=== PATIENT | male | born 1990 ===

== ENCOUNTER 2021-04-09 18:02 | Emergency (ER) | payer SELFPAY ==
[~2021-04-09] VITALS: Ht 167 cm; Wt 100.0 kg
[2021-04-09 18:33] LABS: BILIRUBIN,URINE NEGATIVE (NEGATIVE); CLARITY,URINE CLEAR; COLOR,URINE YELLOW; GLUCOSE, URINE (UA) NEGATIVE (NEGATIVE); KETONES,URINE NEGATIVE (NEGATIVE); LEUKOCYTE ESTERASE ,URINE NEGATIVE (NEGATIVE); NITRITE,URINE NEGATIVE (NEGATIVE); PROTEIN,URINE NEGATIVE (NEGATIVE)
[2021-04-09] MEDS ORDERED: FAMOTIDINE 20 MG (PEPCID) TABLET PO STA (18:43)
[2021-04-09] MEDS ORDERED: LIDOCAINE 2% VISCOUS 15 ML UDC PO ONE (18:45)
[2021-04-09] MEDS ORDERED: LACTATED RINGERS 1,000 ML IV ONE (18:45)
[2021-04-09] MEDS ORDERED: ANTACID SUSP 30 ML UDC (MYLANTA) PO ONE (18:45)
[2021-04-09 18:47] LABS: AMORPHOUS SEDIMENT,UR RARE AMOR URATES /LPF; BACTERIA,URINE TRACE /HPF
--- NOTE | 2021-04-09 18:48 | ED Abdominal Pain ---
General Chief Complaint: Abdominal/GI Problems Stated Complaint: R SIDE ABD PAIN Source of Information: Patient Exam Limitations: No Limitations History of Present Illness Date Seen by Provider: Apr 09, 2021 Time Seen by Provider: 18:35 Initial Comments Patient to ER by private conveyance with his significant other and chief complaint that he started experiencing some abdominal pain this evening about 30 minutes after he ate in his left upper quadrant abdomen. He had a hard bowel movement a couple hours ago and noticed a little red blood around it. He is never had this before. No history of diverticulitis or abdominal surgeries. No colonoscopy or EGD. No nausea vomiting fevers chills. The pain has all but gone away at this time. No history of GERD or pancreatitis. He does not drink. No sore throat or trauma. He describes the pain as feeling like a gas bubble. Allergies and Home Medications Allergies Coded Allergies: No Known Drug Allergies (Unverified , 04/09/21) Patient Home Medication List Home Medication List Reviewed: Yes Review of Systems Review of Systems Constitutional: No chills, No diaphoresis EENTM: No Blurred Vision, No Double Vision Respiratory: Denies Cough, Denies Shortness of Air Cardiovascular: Denies Chest Pain, Denies Lightheadedness Gastrointestinal: See HPI, Abdominal Pain; Denies Diarrhea, Denies Nausea; Rectal Bleeding; Denies Vomiting Genitourinary: Denies Burning, Denies Discharge Musculoskeletal: No back pain, No joint pain All Other Systems Reviewed Negative Unless Noted: Yes Past Mynmamb-Vnjkfk-Jpkedp Hx Patient Social History Tobacco Use?: No Substance use?: No Alcohol Use?: No Pt feels they are or have been: No Immunizations Up To Date Influenza Vaccine Up-to-Date: No; Not Current Physical Exam Vital Signs Vital Signs - First Documented 04/09/21 18:20 Temp 36.8 Pulse 80 Resp 20 B/P (MAP) 150/90 (110) Pulse Ox 95 O2 Delivery Room Air Capillary Refill : Height/Weight/BMI Height: '" Weight: lbs. oz. kg; BMI Method: General Appearance: WD/WN, no apparent distress HEENT: PERRL/EOMI; No pharynx normal (Dry oral mucosa) Neck: full range of motion, normal inspection Respiratory: no respiratory distress, no accessory muscle use Cardiovascular: normal peripheral pulses, regular rate, rhythm Gastrointestinal: normal bowel sounds, soft, no organomegaly, tenderness (Mild left upper quadrant abdominal tenderness without splenomegaly. No guarding, no Rovsing, mesenteric, McBurney's point, rebound tenderness. Negative for Baltazar sign) Extremities: non-tender, normal inspection, normal capillary refill Neurologic/Psychiatric: alert, oriented x 3, other (Anxious affect) Progress/Results/Core Measures Results/Orders Lab Results Laboratory Tests Test 04/09/21 18:27 04/09/21 18:30 Range/Units Urine Color YELLOW Urine Clarity CLEAR Urine pH 6.0 5-9 Urine Specific [place] >=1.030 1.016-1.022 Urine Protein NEGATIVE NEGATIVE Urine Glucose (UA) NEGATIVE NEGATIVE Urine Ketones NEGATIVE NEGATIVE Urine Nitrite NEGATIVE NEGATIVE Urine Bilirubin NEGATIVE NEGATIVE Urine Urobilinogen 0.2 < = 1.0 MG/DL Urine Leukocyte Esterase NEGATIVE NEGATIVE Urine RBC (Auto) NEGATIVE NEGATIVE Urine RBC NONE /HPF Urine WBC NONE /HPF Urine Crystals PRESENT H /LPF Urine Amorphous Sediment RARE TREVOR URATES H /LPF Urine Bacteria TRACE /HPF Urine Casts NONE /LPF Urine Mucus NEGATIVE /LPF Urine Culture Indicated NO White Blood Count 8.7 4.3-11.0 10^3/uL Red Blood Count 5.19 4.30-5.52 10^6/uL Hemoglobin 14.8 13.3-17.7 g/dL Hematocrit 46 40-54 % Mean Corpuscular Volume 88 80-99 fL Mean Corpuscular Hemoglobin 29 25-34 pg Mean Corpuscular Hemoglobin Concent 33 32-36 g/dL Red Cell Distribution Width 13.1 10.0-14.5 % Platelet Count 305 130-400 10^3/uL Mean Platelet Volume 9.2 9.0-12.2 fL Immature Granulocyte % (Auto) 0 % Neutrophils (%) (Auto) 48 42-75 % Lymphocytes (%) (Auto) 41 12-44 % Monocytes (%) (Auto) 10 0-12 % Eosinophils (%) (Auto) 1 0-10 % Basophils (%) (Auto) 1 0-10 % Neutrophils # (Auto) 4.1 1.8-7.8 10^3/uL Lymphocytes # (Auto) 3.5 1.0-4.0 10^3/uL Monocytes # (Auto) 0.8 0.0-1.0 10^3/uL Eosinophils # (Auto) 0.1 0.0-0.3 10^3/uL Basophils # (Auto) 0.0 0.0-0.1 10^3/uL Immature Granulocyte # (Auto) 0.0 0.0-0.1 10^3/uL Sodium Level 141 135-145 MMOL/L Potassium Level 3.9 3.6-5.0 MMOL/L Chloride Level 105 98-107 MMOL/L Carbon Dioxide Level 24 21-32 MMOL/L Anion Gap 12 5-14 MMOL/L Blood Urea Nitrogen 16 7-18 MG/DL Creatinine 0.87 0.60-1.30 MG/DL Estimat Glomerular Filtration Rate 102 BUN/Creatinine Ratio 18 Glucose Level 104 70-105 MG/DL Calcium Level 8.6 8.5-10.1 MG/DL Corrected Calcium 8.3 L 8.5-10.1 MG/DL Total Bilirubin 1.2 H 0.1-1.0 MG/DL Aspartate Amino Transf (AST/SGOT) 34 5-34 U/L Alanine Aminotransferase (ALT/SGPT) 53 0-55 U/L Alkaline Phosphatase 94 40-136 U/L C-Reactive Protein High Sensitivity 0.32 0.00-0.50 MG/DL Total Protein 7.6 6.4-8.2 GM/DL Albumin 4.4 3.2-4.5 GM/DL Lipase 25 8-78 U/L My Orders Orders - [facility] Ua Culture If Indicated (04/09/21 18:09) Lidocaine 2% Viscous 15 Ml (Xylocaine Vi (04/09/21 18:45) Famotidine Tablet (Pepcid Tablet) (04/09/21 18:43) Antacid Suspension (Mylanta Suspension (04/09/21 18:45) Ed Iv/Invasive Line Start (04/09/21 18:43) Lactated Ringers (Lr 1000 Ml Iv Solution (04/09/21 18:45) Cbc With Automated Diff (04/09/21 18:44) Comprehensive Metabolic Panel (04/09/21 18:44) Hs C Reactive Protein (04/09/21 18:44) Lipase (04/09/21 18:44) Medications Given in ED Current Medications Medications Dose Ordered Sig/Petty Route Start Time Stop Time Status Last Admin Dose Admin Al Hydrox/Mg Hydrox/Simethicone 30 ml ONCE ONCE PO 04/09/21 18:45 04/09/21 18:46 DC 04/09/21 19:09 30 ML Lactated Ringer's 1,000 ml @ 0 mls/hr Q0M ONCE IV 04/09/21 18:45 04/09/21 18:46 DC 04/09/21 19:09 1,000 MLS/HR Lidocaine HCl 15 ml ONCE ONCE PO 04/09/21 18:45 04/09/21 18:46 DC 04/09/21 19:09 15 ML Vital Signs/I&O 04/09/21 18:20 Temp 36.8 Pulse 80 Resp 20 B/P (MAP) 150/90 (110) Pulse Ox 95 O2 Delivery Room Air Progress Progress Note #1: Time: 18:48 Progress Note Constipation versus much less likely a colitis, pancreatitis, gastritis, diverticulitis. Check some basic labs and a CRP. If these are okay he has a nonsurgical abdomen and normal, aseptic vital signs. GI cocktail and Pepcid Progress Note #2: Time: 19:37 Progress Note Patient is a marginal increase in his bilirubin but otherwise his labs are okay. His repeat abdominal exam is benign. His pain is gone. Unclear whether this truly represents gastritis or more likely obstipation/constipation. We will let him finish his liter of fluids put him on MiraLAX for couple days and if this does not improve his symptoms then he can follow-up with Dr. Lorenzo for further outpatient work-up. He says about 3 or 4 months ago he had a similar pain after eating. Departure Impression Primary Impression: Constipation Qualified Codes: K59.00 - Constipation, unspecified Additional Impression: Abdominal pain Qualified Codes: R10.12 - Left upper quadrant pain Disposition: 01 HOME, SELF-CARE Condition: Stable Departure-Patient Inst. Decision time for Depature: 19:38 Referrals: LAWSON LORENZO MD NO,LOCAL PHYSICIAN (PCP) Primary Care Physician Patient Instructions: Constipation, Adult (DC) Add. Discharge Instructions: Its not entirely clear what is causing your abdominal pain however I highly suspect that it is related to constipation. I would like for the next 2 to 3 days for you to take MiraLAX 1 capful in 6 ounces of fluid 3 times a day until you have nothing left in your bowels but water. Drink lots of water. Tylenol 1000 mg every 8 hours as necessary for pain. Ibuprofen 800 mg every 8 hours as necessary for pain. If your symptoms persist then I would encourage you to follow-up with Dr. Lorenzo, general surgery as he can further work you up to find out what is going on with your abdominal pain. If you have intractable pain despite Tums, Rolaids, Maalox, Mylanta, Tylenol and ibuprofen or other worrisome symptoms then you should return to the nearest ER for further work-up. All discharge instructions reviewed with patient and/or family. Voiced understanding. Work/School Note: Work Release Form Date Seen in the Emergency Department: Apr 09, 2021 Return to Work: Apr 12, 2021 Restrictions: No Restrictions Copy Copies To 1: LAWSON LORENZO MD, TITUS J Apr 09, 2021 18:48
[2021-04-09 18:51] LABS: BASOPHILS % (AUTO) 1 % (0-10); EOSINOPHILS # (AUTO) 0.1 10^3/uL (0.0-0.3); EOSINOPHILS % (AUTO) 1 % (0-10); HEMATOCRIT 46 % (40-54); HEMOGLOBIN 14.8 g/dL (13.3-17.7); LYMPHOCYTES # (AUTO) 3.5 10^3/uL (1.0-4.0); LYMPHOCYTES % (AUTO) 41 % (12-44); MEAN CORPUSCULAR HEMOGLOBIN 29 pg (25-34); MEAN CORPUSCULAR HGB CONC 33 g/dL (32-36); MEAN CORPUSCULAR VOLUME 88 fL (80-99); MEAN PLATELET VOLUME 9.2 fL (9.0-12.2); MONOCYTES # (AUTO) 0.8 10^3/uL (0.0-1.0); MONOCYTES % (AUTO) 10 % (0-12); NEUTROPHILS # (AUTO) 4.1 10^3/uL (1.8-7.8); NEUTROPHILS % (AUTO) 48 % (42-75); PLATELET COUNT 305 10^3/uL (130-400); WHITE BLOOD COUNT 8.7 10^3/uL (4.3-11.0)
[2021-04-09 19:03] LABS: ALBUMIN 4.4 GM/DL (3.2-4.5)
[2021-04-09 19:04] LABS: POTASSIUM 3.9 MMOL/L (3.6-5.0)
[2021-04-09 19:05] LABS: CALCIUM 8.6 MG/DL (8.5-10.1)
[2021-04-09 19:06] LABS: TOTAL PROTEIN 7.6 GM/DL (6.4-8.2)
[2021-04-09 19:08] LABS: BILIRUBIN,TOTAL 1.2 MG/DL (0.1-1.0)
[2021-04-09 19:10] LABS: CREATININE SERUM 0.87 MG/DL (0.60-1.30)
[2021-04-09 19:55] VITALS: BP 122/73
== END 2021-04-09 19:56 | disposition home or self-care (01) ==
LOC: ER 18:06
DX: K59.00 Constipation, unspecified (principal)
CPT/HCPCS: 36415; 80053; 81000; 83690; 85025; 86141